=== PATIENT | male | born 1975 | race Caucasian/White ===

== ENCOUNTER → 2024-02-17 12:47 | Outpatient (BNVA) | payer OTHER, SELFPAY | PROVIDERS: PCP Nurse Practitioner; Visit Provider Dermatology | DX: D48.5 Neoplasm of uncertain behavior of skin (principal); L57.0 Actinic keratosis; L82.1 Other seborrheic keratosis; H61.032 Chondritis of left external ear; D23.39 Other benign neoplasm of skin of other parts of face; D22.71 Melanocytic nevi of right lower limb, including hip | CPT/HCPCS: 11102; 17000; 99203 ==

== ENCOUNTER → 2024-03-08 10:00 | Outpatient (BNVA) | payer OTHER, SELFPAY | PROVIDERS: PCP Nurse Practitioner; Visit Provider Dermatology | DX: C44.41 Basal cell carcinoma of skin of scalp and neck (principal); C44.91 Basal cell carcinoma of skin, unspecified | CPT/HCPCS: 12044; 17311; 99213 ==

== ENCOUNTER → 2024-11-06 09:51 | Outpatient (BNVA) | payer OTHER, SELFPAY | PROVIDERS: PCP Nurse Practitioner; Visit Provider Nurse Practitioner | DX: Z12.5 Encounter for screening for malignant neoplasm of prostate (principal); Z12.11 Encounter for screening for malignant neoplasm of colon; N50.819 Testicular pain, unspecified; G89.29 Other chronic pain | CPT/HCPCS: 80053; 84443; 85025; G0103 ==

== ENCOUNTER 2025-01-09 08:40 | Day surgery (SDC) | payer OTHER, SELFPAY ==
[2025-01-09 09:05] VITALS: BP 151/101; PULSE 82; RESP 16; TEMP 36.8; O2SAT 98; BMI 23.7
[2025-01-09] MEDS: sodium chloride 0.9% 500 ML 15 ML IV (09:11)
--- NOTE | 2025-01-09 09:48 | ANES.PREANE2 ---
Pre-Anesthetic Assessment Height/Weight: Height 1.8 m Weight 77.111 kg Temp Pulse Resp BP Pulse Ox O2 Del Method 98.2 F 82 16 151/101 98 Room Air 01/09/25 09:05 01/09/25 09:05 01/09/25 09:05 01/09/25 09:05 01/09/25 09:05 01/09/25 09:05 Preop Diagnosis: GERD, Screening Operation Date: 01/09/25 09:45 Proposed Procedures p EGD [id number] G0121 Z12.11 R12(Not Applicable) - Jacob Cárdenas MD s Colonoscopy(Not Applicable) - Jacob Cárdenas MD Familial anesthetic complications: none Was Beta Ghislaine taken within 24 hours: N/A Was Clonidine taken within 24 hours: N/A Last intake: Intake Last Liquid Date 01/08/25 Last Liquid Time 21:00 Last Solid Date 01/07/25 Last Solid Time 19:00 Social No alcohol and No tobacco Exam alert, oriented x 3, clear to auscultation bilaterally and regular rate & rhythm Airway Cervical ROM: within normal limits Mallampati: Class II Dentition: full History/ROS No significant complaints Pulmonary None reported CV/HEM None reported None reported Hepatic None reported GI Gastroesophageal Reflux Disease Metabolic None reported Musc/skel None reported Neuropsych None reported Anesthetic Plan ASA status: 2 Anesthesia: MAC Risk of > 500 ml blood loss (7ml/kg in children): No Medications/Allergies Home Medications ?Medication ?Instructions ?Recorded ?Confirmed ?Last Taken ?Type No Known Home Medications 01/12/24 01/09/25 Unknown History Allergies Allergy/AdvReac Type Severity Reaction Status Date / Time No Known Allergies Allergy Verified 01/09/25 09:03 Current Medications Generic Name Dose Route Start Last Admin Trade Name Freq PRN Reason Stop Dose Admin Sodium Chloride 500 mls @ 15 mls/hr 01/09/25 08:57 01/09/25 09:11 Sodium Chloride 0.9% IV 01/10/25 08:56 15 mls/hr .Q24H PRN Administration COLONOSCOPY FLUIDS PFSH Anesthesia Surgical History History of appendectomy Social History Smoking and tobacco/nicotine status: current every day tobacco/nicotine user (Chews) Second hand smoke exposure: Yes Alcohol intake: current Alcohol intake frequency: few times a week Alcohol type: beer and hard liquor Substance/Drug Use: never Adopted: No Caregiver/support person: No Lives independently: Yes Household members: none Marital status: Single Number of children: 0 Number of grandchildren: 0 Highest education level completed: Associate Degree: Occupational, Technical, Vocational Program service: No Current occupational status: employed Current occupation: [employer] Current occupational exposures/hazards: Yes Pets and animals: Yes Do you think of yourself as: Straight/Heterosexual Current gender identity: Male Special rhina needs: No Agree to transfusion: Yes (O neg) Data Anesthesia Cardiac Studies: No Data to Display
--- NOTE | 2025-01-09 09:55 | W.PM.OPSFHP ---
Same Day Surgery H&P Indication for Procedure/HPI DATE OF PROCEDURE: January 09, 2025 CHIEF COMPLAINT/INDICATIONFOR SURGICAL PROCEDURE: GERD screening colonoscopy PREOP DIAGNOSIS: GERD, Screening PLANNED PROCEDURE: Operation Date: 01/09/25 09:45 Proposed Procedures p EGD [id number] G0121 Z12.11 R12(Not Applicable) - Jacob Cárdenas MD s Colonoscopy(Not Applicable) - Jacob Cárdenas MD Medications/Allergies* Home Medications ?Medication ?Instructions ?Recorded ?Confirmed ?Type No Known Home Medications 01/12/24 01/09/25 History Allergies/Adverse Reactions Allergy/AdvReac Type Severity Reaction Status Date / Time No Known Allergies Allergy Verified 01/09/25 09:03 Current Medications: Generic Name Dose Route Start Last Admin Trade Name Freq PRN Reason Stop Dose Admin Sodium Chloride 500 mls @ 15 mls/hr 01/09/25 08:57 01/09/25 09:11 Sodium Chloride 0.9% IV 01/10/25 08:56 15 mls/hr .Q24H PRN Administration COLONOSCOPY FLUIDS Pertinent History/Comorbid Conditions* Surgical History (Updated 01/12/24 @ 08:50 by Jolly Lyman) History of appendectomy Social History Smoking and tobacco/nicotine status: current every day tobacco/nicotine user (Chews) Second hand smoke exposure: Yes Alcohol intake: current Alcohol intake frequency: few times a week Alcohol type: beer and hard liquor Substance/Drug Use: never Adopted: No Caregiver/support person: No Lives independently: Yes Household members: none Marital status: Single Number of children: 0 Number of grandchildren: 0 Highest education level completed: Associate Degree: Occupational, Technical, Vocational Program service: No Current occupational status: employed Current occupation: [employer] Current occupational exposures/hazards: Yes Pets and animals: Yes Do you think of yourself as: Straight/Heterosexual Current gender identity: Male Special rhina needs: No Agree to transfusion: Yes (O neg) Pertinent Exam Findings alert, oriented x 3, clear to auscultation bilaterally, regular rate & rhythm and procedure specific exam findings abdomen soft, nt, nd Recommendations Surgery/Procedure today Other Plans: Discussed risks and benefits and patient agrees to proceed with EGD & colonoscopy Coding Level of Care Code Acute Code for Chg Fwd
[2025-01-09 10:25] VITALS: BP 101/68; PULSE 77; RESP 12; TEMP 36.6; O2SAT 99
[2025-01-09 10:40] VITALS: BP 131/88; PULSE 78; RESP 14; TEMP 36.5; O2SAT 98
[2025-01-09 10:50] VITALS: BP 145/91; PULSE 73; RESP 16; TEMP 36.6; O2SAT 100
--- NOTE | 2025-01-09 11:25 | ANE.PACU2 ---
Inpatient post-anesthesia follow up: Airway intact: Yes Vital signs: Temperature 97.9 F Pulse Rate 73 Respiratory Rate 16 Blood Pressure 145/91 Pulse Oximetry 100 Oxygen Delivery Me thod Room Air Oxygen Flow Rate Fraction of Inspir ed Oxygen Hydration adequate: Yes Nausea and vomiting: No Pain level: 1 Mental status: Baseline
== END 2025-01-09 11:29 | disposition home or self-care (01) ==
PROVIDERS: PCP Nurse Practitioner; Visit Provider Student in an Organized Health Care Education/Training Program
PROC: 0DJ08ZZ Inspection of Upper Intestinal Tract, Via Natural or Artificial Opening Endoscopic (ICD-10-PCS; principal; 2025-01-09 09:45)
PROC: 0DJD8ZZ Inspection of Lower Intestinal Tract, Via Natural or Artificial Opening Endoscopic (ICD-10-PCS; CPT 45378; 2025-01-09 09:45)
DX: Z12.11 Encounter for screening for malignant neoplasm of colon (principal); K22.10 Ulcer of esophagus without bleeding; K29.80 Duodenitis without bleeding; K29.51 Unspecified chronic gastritis with bleeding; F17.220 Nicotine dependence, chewing tobacco, uncomplicated
CPT/HCPCS: 43239; 45378; 88305; J2704; J7040